=== PATIENT | male | born 1975 | race Hispanic/Latino ===

== ENCOUNTER 2017-12-27 14:50 | Outpatient (CLI) | payer OTHER ==
--- NOTE | 2017-12-27 15:49 | RAD ---
THREE VIEWS OF THE LUMBAR SPINE 12/27/17 COMPARISON: 07/15/17 HISTORY: Lumbar radiculopathy. FINDINGS: The patient appears status post bilateral laminectomy at L3, L4 and L5. Probable partial laminectomy changes noted at L2 as well. There is multilevel facet hypertrophy at L3-4, L4-5, and L5-S1. There is disc space narrowing at L2-3, L3-4, L4-5 and L5-S1. There is anterolisthesis of L4 on L5 measuring i n the 8 mm range on neutral imaging. This anterolisthesis at L4-5 has increased from the 07/15/17 exam at which time it measured in the 2-3 mm range. With flexion, anterolisthesis of L4 on L5 measures 8- 9 mm and with extension, anterolisthesis of L4 on L5 measures in the 7 mm range. IMPRESSION: Multilevel degenerative change seen within the lumbar spine, including anterolisthesis of L4 on L5 me asuring up to 8-9 mm, increased since the prior exam. POS: [facility]
== END 2017-12-27 14:51 | disposition home or self-care (01) ==
LOC: RAD 14:50
PROVIDERS: ATTEND Neurological Surgery
DX: M47.26 Other spondylosis with radiculopathy, lumbar region (principal); M43.16 Spondylolisthesis, lumbar region
CPT/HCPCS: 72100

== ENCOUNTER 2018-07-12 15:25 | Outpatient (CLI) | payer OTHER ==
[~2018-07-12 15:25] MED LIST: Gadobenate Dimeglumine 529 MG/1 ML (20ML VIAL) ONE
== END 2018-07-12 15:26 | disposition home or self-care (01) ==
LOC: BICCT 15:25
PROVIDERS: ATTEND Neurological Surgery
DX: M47.26 Other spondylosis with radiculopathy, lumbar region (principal); M51.16 Intervertebral disc disorders with radiculopathy, lumbar region; M99.83 Other biomechanical lesions of lumbar region; M43.16 Spondylolisthesis, lumbar region; M41.86 Other forms of scoliosis, lumbar region; Z98.890 Other specified postprocedural states
CPT/HCPCS: 72131; 72158; A9579

== ENCOUNTER 2022-06-08 15:26 | Inpatient (IN) | payer OTHER ==
[2022-06-08 16:02] LABS: Hemoglobin 11.6 g/dL (14.0-18.0); Mean Corpuscular Hemoglobin 32.2 pg (27.0-31.0); Mean Corpuscular Volume 94.7 fL (78.0-98.0); Mean Platelet Volume 7.9 fL (7.4-10.4); Platelet Count 181 thou/uL (130-400); RBC Distribution Width 11.4 % (11.5-14.5); Red Blood Cell (RBC) Count 3.61 mill/uL (4.70-6.10); White Blood Cell (WBC) Count 8.4 thou/uL (4.8-10.8)
[2022-06-08] MEDS ORDERED: Labetalol HCl 100 MG/20 ML VIAL ONE (16:08)
[2022-06-08 16:09] LABS: PTT 31.5 sec (22.9-36.1)
[2022-06-08 16:10] LABS: INR-International Normal Ratio 1.2
[2022-06-08 16:17] LABS: Band 7 % (5-11); Lymphocytes 30 % (21-51); MDiff Complete? YES; Monocytes 10 % (0-10); Neutrophil 51 % (42-75); Platelet Morphology Comment Appears Adequate; Polychromasia SLIGHT = 2-3 cells (100X) (0-2/hpf)
[2022-06-08 16:21] LABS: ALT (SGPT) 63 U/L (8-55); AST (SGOT) 108 U/L (5-34); Albumin 3.7 g/dL (3.5-5.0); Alkaline Phosphatase 63 U/L (40-110); Anion Gap 16 mmol/L (10-20); BUN (Urea Nitrogen) 6 mg/dL (8.9-20.6); Bilirubin, Total 0.4 mg/dL (0.2-1.2); CK (CPK) 189 U/L (30-200); Calc. Creatinine Clearance 0 mL/min (70-130); Calcium 8.8 mg/dL (7.8-10.44); Carbon Dioxide 22 mmol/L (22-29); Chloride 96 mmol/L (98-107); Estimated GFR 118; Globulin 3.5 g/dL (2.4-3.5); Glucose 116 mg/dL (70-105); Protein, Total 7.2 g/dL (6.0-8.3); Sodium 130 mmol/L (136-145)
[2022-06-08] MEDS ORDERED: Electrolyte Replacement Protocol 1 EACH IVPB ONE (16:37)
[2022-06-08] MEDS ORDERED: Electrolyte Replacement Protocol 1 EACH FS SCH (17:15)
[2022-06-08] MEDS ORDERED: Ondansetron ODT 4 MG TAB PO PRN (17:15)
[2022-06-08] MEDS ORDERED: Lorazepam (BATCHED) 2 MG/ML SYR SLOW IVP PRN (17:17)
[2022-06-08 17:58] LABS: Magnesium 1.6 mg/dL (1.6-2.6)
[2022-06-08 18:00] LABS: SARS-CoV-2 NAA Rapid Test Not Detected (NotDetected)
[2022-06-08] MEDS ORDERED: Magnesium 2 GM/50 ML BAG (IN WATER) ONE (18:38)
[2022-06-08] MEDS: Multivitamins, Adult 10 ML, Folic Acid 1 MG, Thiamine HCl 100 MG in Dextrose 5 %-0.45 %... IV SCH (20:32)
[2022-06-08] MEDS ORDERED: Rocuronium Bromide 10 MG/ML (10ML VIAL) ONE (20:42)
[2022-06-08] MEDS ORDERED: PROPOFOL 200 MG/20 ML VIAL ONE (20:42)
[2022-06-08] MEDS ORDERED: Propofol 1,000 MG/100 ML VIAL IV ONE (20:47)
[2022-06-08] MEDS ORDERED: Lorazepam 2 MG/ML VIAL ONE (20:55)
[2022-06-08] MEDS ORDERED: DISCONTINUE PREVIOUS NARCOTIC PAIN MEDICATIONS AND BENZODIAZEPINES FS SCH (21:00)
[2022-06-08] MEDS ORDERED: Fentanyl BOLUS 250 ML IVPB PRN (21:00)
[2022-06-08] MEDS ORDERED: Ventilator Sedation Protocol 1 EACH FS SCH (21:00)
[2022-06-08] MEDS ORDERED: Propofol BOLUS 1,000 MG/100 ML VIAL IV PRN (21:00)
[2022-06-08] MEDS: hydrALAZINE 20 MG/ML VIAL SLOW IVP PRN (21:10)
[2022-06-08] MEDS: Labetalol HCl 100 MG/20 ML VIAL SLOW IVP PRN (21:16)
[2022-06-08 21:25] LABS: Actual Bicarbonate (HCO3a) 15.7 mEq/L (22-28); Base Excess (BEa) -6.4 mEq/L (-2.0 to +3.0); Calcium, Ionized (arterial) 1.15 mmol/L (1.12-1.30); O2 Tension (PaO2), arterial 147.2 mmHg (80.0-100.0); Potassium - ABG Lab 3.74 mmol/L (3.70-5.30); pH, Arterial 7.44 (7.35-7.45)
[2022-06-08 21:26] LABS: CO2 Tension 23.8 mmHg (35.0-45.0)
[2022-06-08 21:27] LABS: Puncture Site LRA
[2022-06-08] MEDS ORDERED: Fentanyl CADD 100 ML ONE (21:27)
[2022-06-08] MEDS: Fentanyl CADD 100 ML IV SCH (21:36)
[2022-06-08] MEDS: niCARdipine 25 MG in Sodium Chloride 0.9% 250 ML 250 ML IVPB SCH (21:37)
[2022-06-08] MEDS: Famotidine/PF 20 mg/2ml Vial SLOW IVP SCH (23:56)
[2022-06-09] MEDS: Propofol 1,000 MG/100 ML VIAL IV PRN (01:57)
[2022-06-09] MEDS ORDERED: Lorazepam 2 MG/ML VIAL ONE (02:58)
[2022-06-09 06:37] LABS: #Basophils 0.1 thou/uL (0.0-0.2); #Lymphocytes 1.2 thou/uL (1.20-3.40); #Neutrophils 14.9 thou/uL (1.40-6.50); %Basophils 0.3 % (0.0-1.0); %Eosinophils 0.1 % (0.0-10.0); %Lymphocytes 6.6 % (21.0-51.0); Hemoglobin 11.9 g/dL (14.0-18.0); Mean Corpuscular Hemoglobin 32.4 pg (27.0-31.0); Mean Corpuscular Volume 95.3 fL (78.0-98.0); Mean Platelet Volume 7.8 fL (7.4-10.4); Platelet Count 172 thou/uL (130-400); RBC Distribution Width 11.5 % (11.5-14.5); Red Blood Cell (RBC) Count 3.68 mill/uL (4.70-6.10); White Blood Cell (WBC) Count 18.2 thou/uL (4.8-10.8)
[2022-06-09 06:53] LABS: Amphetamine Not Detected (NotDetected); Barbiturates Screen Not Detected (NotDetected); Benzodiazepine Screen Detected (NotDetected); Cocaine Metabolite Screen Not Detected (NotDetected); Methadone Not Detected (NotDetected); Methamphetamine Not Detected (NotDetected); Opiate Screen Not Detected (NotDetected); Oxycodone Screen Not Detected (NotDetected); Phencyclidine (PCP) Not Detected (NotDetected); THC/Cannabinoid Screen Not Detected (NotDetected); Tricyclic Screen Not Detected (NotDetected)
[2022-06-09 06:54] LABS: Anion Gap 16 mmol/L (10-20); BUN (Urea Nitrogen) 5 mg/dL (8.9-20.6); Calc. Creatinine Clearance 140 mL/min (70-130); Calcium 9.1 mg/dL (7.8-10.44); Carbon Dioxide 22 mmol/L (22-29); Cardiac Risk 3.4 (Less than 4.5); Chloride 96 mmol/L (98-107); Cholesterol 224 mg/dl (< 200 Desired); Estimated GFR 116; Glucose 148 mg/dL (70-105); HDL Cholesterol 65 mg/dL (>60 Neg Risk); LDL Cholesterol, Calculated 146 mg/dL; Potassium 3.9 mmol/L (3.5-5.1); Sodium 130 mmol/L (136-145); Triglycerides 63 mg/dL (Less than 150)
[2022-06-09] MEDS: Famotidine/PF 20 mg/2ml Vial SLOW IVP SCH (08:00)
[2022-06-09] MEDS: Folic Acid 1 MG TAB PO SCH (08:00)
[2022-06-09] MEDS: niCARdipine 25 MG in Sodium Chloride 0.9% 250 ML 250 ML IVPB SCH (08:01)
[2022-06-09] MEDS ORDERED: Iopamidol-370 76% 500 ML 1 ML ONE (09:28)
[2022-06-09] MEDS: Pantoprazole 40 MG VIAL IVP SCH ×2 (10:08→21:28)
[2022-06-09 10:57] LABS: Syphilis Antibody Nonreactive (Nonreactive)
[2022-06-09 11:01] LABS: Syphilis Antibody Index 0.07 S/CO (<1.00 Non-Reactive)
[2022-06-09 12:55] LABS: Actual Bicarbonate (HCO3a) 24.5 mEq/L (22-28); Analyzer IN Cardio ER; Base Excess (BEa) 0.9 mEq/L (-2.0 to +3.0); CO2 Tension 35.5 mmHg (35.0-45.0); Calcium, Ionized (arterial) 1.18 mmol/L (1.12-1.30); Carboxyhemoglobin (COHb) 0.9 gm% (0.0-3.0); Hemoglobin (Hb) 12.6 g/dL (14.0-18.0); O2 Tension (PaO2), arterial 60.6 mmHg (80.0-100.0); Potassium - ABG Lab 3.88 mmol/L (3.70-5.30); pH, Arterial 7.46 (7.35-7.45)
[2022-06-09 13:00] LABS: ALV-art Gradient 144.575 mmHg (0-20); Puncture Site LRA
[2022-06-09] MEDS: Sodium Chloride 0.9% 1,000 ML IV SCH ×2 (14:25→22:45)
[2022-06-09] MEDS ORDERED: Fentanyl CADD 0 ML ONE (17:03)
[2022-06-09] MEDS: Fentanyl CADD 100 ML IV SCH (17:11)
[2022-06-09] MEDS: Multivitamins, Adult 10 ML, Folic Acid 1 MG, Thiamine HCl 100 MG in Dextrose 5 %-0.45 %... IV SCH (18:00)
[2022-06-09] MEDS: levETIRAcetam 500 MG/5 ML VIAL SLOW IVP SCH (21:28)
[2022-06-10] MEDS: levETIRAcetam 500 MG/5 ML VIAL SLOW IVP SCH ×2 (09:41→20:49)
[2022-06-10] MEDS: Propofol 1,000 MG/100 ML VIAL IV PRN ×2 (09:41→17:24)
[2022-06-10] MEDS: Folic Acid 1 MG TAB PO SCH (09:42)
[2022-06-10] MEDS: Pantoprazole 40 MG VIAL IVP SCH ×2 (09:43→20:49)
[2022-06-10 09:57] LABS: #Basophils 0.1 thou/uL (0.0-0.2); #Lymphocytes 1.5 thou/uL (1.20-3.40); #Monocytes 2.1 thou/uL (0.11-0.59); #Neutrophils 12.2 thou/uL (1.40-6.50); %Basophils 0.3 % (0.0-1.0); %Eosinophils 0.2 % (0.0-10.0); %Lymphocytes 9.5 % (21.0-51.0); %Monocytes 13.4 % (0.0-10.0); %Neutrophils 76.5 % (42.0-75.0); Hemoglobin 12.2 g/dL (14.0-18.0); Mean Corpuscular HGB CONC 32.3 g/dL (32.0-36.0); Mean Platelet Volume 8.5 fL (7.4-10.4); Platelet Count 135 thou/uL (130-400); RBC Distribution Width 11.5 % (11.5-14.5); Red Blood Cell (RBC) Count 3.83 mill/uL (4.70-6.10)
[2022-06-10 10:13] LABS: ALT (SGPT) 39 U/L (8-55); AST (SGOT) 48 U/L (5-34); Albumin 3.5 g/dL (3.5-5.0); Alkaline Phosphatase 58 U/L (40-110); Anion Gap 14 mmol/L (10-20); BUN (Urea Nitrogen) 5 mg/dL (8.9-20.6); Bilirubin, Total 1.1 mg/dL (0.2-1.2); Calc. Creatinine Clearance 155 mL/min (70-130); Carbon Dioxide 23 mmol/L (22-29); Chloride 99 mmol/L (98-107); Estimated GFR 120; Globulin 3.8 g/dL (2.4-3.5); Glucose 114 mg/dL (70-105); Potassium 3.6 mmol/L (3.5-5.1); Protein, Total 7.3 g/dL (6.0-8.3); Sodium 132 mmol/L (136-145)
[2022-06-10] MEDS: Sodium Chloride 0.9% 1,000 ML IV SCH ×2 (10:34→20:51)
[2022-06-10] MEDS ORDERED: Lorazepam 0.5 MG TAB PO SCH (17:15)
[2022-06-10] MEDS ORDERED: Lorazepam 1 MG TAB PO PRN (17:15)
[2022-06-10] MEDS: hydrALAZINE 20 MG/ML VIAL SLOW IVP PRN ×2 (17:49→19:46)
[2022-06-10] MEDS: Multivitamins, Adult 10 ML, Folic Acid 1 MG, Thiamine HCl 100 MG in Dextrose 5 %-0.45 %... IV SCH (19:09)
[2022-06-10] MEDS: niCARdipine 25 MG in Sodium Chloride 0.9% 250 ML 250 ML IVPB SCH (21:56)
[2022-06-11] MEDS: niCARdipine 50 MG in Sodium Chloride 0.9% 250 ML 230 ML IVPB SCH ×4 (01:10→18:40)
[2022-06-11 04:11] LABS: ALT (SGPT) 33 U/L (8-55); AST (SGOT) 33 U/L (5-34); Albumin 3.3 g/dL (3.5-5.0); Alkaline Phosphatase 63 U/L (40-110); Anion Gap 14 mmol/L (10-20); BUN (Urea Nitrogen) 6 mg/dL (8.9-20.6); Bilirubin, Total 1.3 mg/dL (0.2-1.2); Calc. Creatinine Clearance 155 mL/min (70-130); Calcium 8.8 mg/dL (7.8-10.44); Carbon Dioxide 22 mmol/L (22-29); Chloride 96 mmol/L (98-107); Estimated GFR 120; Globulin 3.9 g/dL (2.4-3.5); Glucose 161 mg/dL (70-105); Protein, Total 7.2 g/dL (6.0-8.3); Sodium 129 mmol/L (136-145)
[2022-06-11 04:34] LABS: Band 35 % (5-11); Hemoglobin 11.8 g/dL (14.0-18.0); Hypochromia SLIGHT = 6-15 cells (100X) (0-5/hpf); Lymphocytes 5 % (21-51); MDiff Complete? YES; Mean Corpuscular Hemoglobin 32.7 pg (27.0-31.0); Mean Corpuscular Volume 96.3 fL (78.0-98.0); Mean Platelet Volume 8.9 fL (7.4-10.4); Monocytes 7 % (0-10); Neutrophil 53 % (42-75); Platelet Count 132 thou/uL (130-400); Platelet Morphology Comment Appears Adequate; RBC Distribution Width 11.4 % (11.5-14.5); Red Blood Cell (RBC) Count 3.62 mill/uL (4.70-6.10); White Blood Cell (WBC) Count 14.1 thou/uL (4.8-10.8)
[2022-06-11 04:43] LABS: Potassium 2.8 mmol/L (3.5-5.1)
[2022-06-11] MEDS ORDERED: Fentanyl CADD 100 ML ONE (04:56)
[2022-06-11] MEDS: Fentanyl CADD 100 ML IV SCH (04:59)
[2022-06-11] MEDS: Potassium Chloride 20 MEQ in Premix Bag 1 BAG IVPB SCH ×4 (05:09→12:16)
[2022-06-11] MEDS: Folic Acid 1 MG TAB PO SCH (08:02)
[2022-06-11] MEDS: levETIRAcetam 500 MG/5 ML VIAL SLOW IVP SCH ×2 (08:02→21:23)
[2022-06-11] MEDS: Pantoprazole 40 MG VIAL IVP SCH ×2 (08:03→21:22)
[2022-06-11] MEDS ORDERED: Potassium Chloride 20 MEQ TAB PO SCH (11:00)
[2022-06-11] MEDS ORDERED: Piperacillin/Tazobactam 3.375 GM in Sodium Chloride 0.9% 100 ML IVPB SCH (11:15)
[2022-06-11] MEDS ORDERED: VANCOMYCIN 1.75 GM/500 ML BAG 1.75 GM in Premix Bag 1 BAG IVPB SCH (12:00)
[2022-06-11] MEDS: Sodium Chloride 0.9% 1,000 ML IV SCH ×2 (12:08→21:37)
[2022-06-11] MEDS: Propofol 1,000 MG/100 ML VIAL IV PRN ×3 (12:25→22:51)
[2022-06-11] MEDS: Piperacillin/Tazobactam 3.375 GM in Sodium Chloride 0.9% 100 ML IVPB SCH ×2 (14:48→22:51)
[2022-06-11] MEDS ORDERED: Lorazepam 0.5 MG TAB PO PRN (17:15)
[2022-06-11 18:31] LABS: Hemoglobin 11.1 g/dL (14.0-18.0)
[2022-06-11] MEDS: Multivitamins, Adult 10 ML, Folic Acid 1 MG, Thiamine HCl 100 MG in Dextrose 5 %-0.45 %... IV SCH (19:02)
[2022-06-11] MEDS: Vancomycin 1 GM in Premix Bag 1 BAG IVPB SCH (21:22)
[2022-06-12] MEDS: Vancomycin 1 GM in Premix Bag 1 BAG IVPB SCH ×3 (03:21→19:53)
[2022-06-12] MEDS: niCARdipine 50 MG in Sodium Chloride 0.9% 250 ML 230 ML IVPB SCH ×2 (03:21→15:09)
[2022-06-12 04:25] LABS: ALT (SGPT) 26 U/L (8-55); AST (SGOT) 25 U/L (5-34); Alkaline Phosphatase 59 U/L (40-110); Anion Gap 14 mmol/L (10-20); BUN (Urea Nitrogen) 9 mg/dL (8.9-20.6); Bilirubin, Total 1.6 mg/dL (0.2-1.2); Calc. Creatinine Clearance 161 mL/min (70-130); Calcium 8.5 mg/dL (7.8-10.44); Carbon Dioxide 21 mmol/L (22-29); Chloride 100 mmol/L (98-107); Estimated GFR 120; Globulin 3.9 g/dL (2.4-3.5); Glucose 142 mg/dL (70-105); Magnesium 1.6 mg/dL (1.6-2.6); Potassium 3.2 mmol/L (3.5-5.1); Protein, Total 6.9 g/dL (6.0-8.3); Sodium 132 mmol/L (136-145)
[2022-06-12] MEDS: Fentanyl CADD 100 ML IV SCH ×2 (04:31→23:30)
[2022-06-12 05:20] LABS: Band 37 % (5-11); Eosinophils 3 % (0-10); Hemoglobin 11.5 g/dL (14.0-18.0); Lymphocytes 5 % (21-51); MDiff Complete? YES; Mean Corpuscular HGB CONC 33.3 g/dL (32.0-36.0); Mean Corpuscular Hemoglobin 32.3 pg (27.0-31.0); Mean Platelet Volume 9.2 fL (7.4-10.4); Monocytes 20 % (0-10); Neutrophil 34 % (42-75); Platelet Count 150 thou/uL (130-400); RBC Distribution Width 11.3 % (11.5-14.5); Red Blood Cell (RBC) Count 3.56 mill/uL (4.70-6.10); White Blood Cell (WBC) Count 14.6 thou/uL (4.8-10.8)
[2022-06-12] MEDS: Piperacillin/Tazobactam 3.375 GM in Sodium Chloride 0.9% 100 ML IVPB SCH ×3 (06:25→22:38)
[2022-06-12 07:59] LABS: Actual Bicarbonate (HCO3a) 21.6 mEq/L (22-28); Base Excess (BEa) -2.3 mEq/L (-2.0 to +3.0); CO2 Tension 34.5 mmHg (35.0-45.0); Calcium, Ionized (arterial) 1.17 mmol/L (1.12-1.30); Carboxyhemoglobin (COHb) 1.2 gm% (0.0-3.0); Hemoglobin (Hb) 13.7 g/dL (14.0-18.0); O2 Tension (PaO2), arterial 67.3 mmHg (80.0-100.0); Potassium - ABG Lab 3.17 mmol/L (3.70-5.30); pH, Arterial 7.41 (7.35-7.45)
[2022-06-12 08:18] LABS: ALV-art Gradient 210.425 mmHg (0-20); Puncture Site RRA
[2022-06-12] MEDS: Sodium Chloride 0.9% 1,000 ML IV SCH ×2 (08:54→17:02)
[2022-06-12] MEDS: Propofol 1,000 MG/100 ML VIAL IV PRN ×3 (08:55→20:20)
[2022-06-12] MEDS: Pantoprazole 40 MG VIAL IVP SCH ×2 (08:55→19:56)
[2022-06-12] MEDS: levETIRAcetam 500 MG/5 ML VIAL SLOW IVP SCH ×2 (08:55→19:57)
[2022-06-12] MEDS: Folic Acid 1 MG TAB PO SCH (08:55)
[2022-06-12] MEDS ORDERED: AFRIN NASAL MIST 15 ML BOT NS PRN (10:58)
[2022-06-12] MEDS: Multivitamins, Adult 10 ML, Folic Acid 1 MG, Thiamine HCl 100 MG in Dextrose 5 %-0.45 %... IV SCH (18:35)
[2022-06-13] MEDS: niCARdipine 50 MG in Sodium Chloride 0.9% 250 ML 230 ML IVPB SCH (01:23)
[2022-06-13] MEDS: Vancomycin 1 GM in Premix Bag 1 BAG IVPB SCH ×3 (03:30→20:11)
[2022-06-13] MEDS: Sodium Chloride 0.9% 1,000 ML IV SCH ×3 (03:55→21:51)
[2022-06-13] MEDS: Piperacillin/Tazobactam 3.375 GM in Sodium Chloride 0.9% 100 ML IVPB SCH ×3 (06:43→22:07)
[2022-06-13] MEDS: Propofol 1,000 MG/100 ML VIAL IV PRN ×3 (09:11→22:06)
[2022-06-13] MEDS: Folic Acid 1 MG TAB PO SCH (09:12)
[2022-06-13] MEDS: Pantoprazole 40 MG VIAL IVP SCH ×2 (09:12→20:11)
[2022-06-13] MEDS: levETIRAcetam 500 MG/5 ML VIAL SLOW IVP SCH ×2 (09:12→20:11)
[2022-06-13 11:55] LABS: INR-International Normal Ratio 1.1; Prothrombin Time 14.5 sec (12.0-14.7)
[2022-06-13 11:56] LABS: PTT 36.8 sec (22.9-36.1)
[2022-06-13] MEDS ORDERED: Fentanyl CADD 100 ML ONE (12:07)
[2022-06-13] MEDS: Fentanyl CADD 100 ML IV SCH (12:30)
[2022-06-13] MEDS: hydrALAZINE 20 MG/ML VIAL SLOW IVP PRN (12:36)
[2022-06-13] MEDS: Multivitamins, Adult 10 ML, Folic Acid 1 MG, Thiamine HCl 100 MG in Dextrose 5 %-0.45 %... IV SCH (17:42)
[2022-06-13] MEDS ORDERED: Pancrelipase DR 12,000 1 CAP FS PRN (19:15)
[2022-06-13] MEDS ORDERED: Sodium Bicarbonate Tab 325 MG TAB PER TUBE PRN (19:15)
[2022-06-14] MEDS ORDERED: Fentanyl CADD 100 ML ONE (00:04)
[2022-06-14] MEDS: Fentanyl CADD 100 ML IV SCH (00:50)
[2022-06-14 04:49] LABS: ALT (SGPT) 32 U/L (8-55); AST (SGOT) 32 U/L (5-34); Albumin 2.7 g/dL (3.5-5.0); Alkaline Phosphatase 83 U/L (40-110); Anion Gap 13 mmol/L (10-20); BUN (Urea Nitrogen) 5 mg/dL (8.9-20.6); Bilirubin, Total 0.8 mg/dL (0.2-1.2); Calc. Creatinine Clearance 207 mL/min (70-130); Calcium 9.1 mg/dL (7.8-10.44); Carbon Dioxide 29 mmol/L (22-29); Chloride 93 mmol/L (98-107); Estimated GFR 127; Globulin 3.9 g/dL (2.4-3.5); Glucose 137 mg/dL (70-105); Magnesium 1.9 mg/dL (1.6-2.6); Protein, Total 6.6 g/dL (6.0-8.3); Sodium 133 mmol/L (136-145)
[2022-06-14 04:53] LABS: Potassium 2.4 mmol/L (3.5-5.1)
[2022-06-14] MEDS: Vancomycin 1 GM in Premix Bag 1 BAG IVPB SCH (04:56)
[2022-06-14 05:25] LABS: Band 27 % (5-11); Hemoglobin 12.1 g/dL (14.0-18.0); Lymphocytes 11 % (21-51); MDiff Complete? YES; Mean Corpuscular HGB CONC 33.5 g/dL (32.0-36.0); Mean Corpuscular Hemoglobin 32.6 pg (27.0-31.0); Mean Corpuscular Volume 97.5 fL (78.0-98.0); Mean Platelet Volume 9.2 fL (7.4-10.4); Monocytes 19 % (0-10); Neutrophil 43 % (42-75); Platelet Count 196 thou/uL (130-400); RBC Distribution Width 11.3 % (11.5-14.5); White Blood Cell (WBC) Count 14.6 thou/uL (4.8-10.8)
[2022-06-14] MEDS: Potassium Chloride 20 MEQ in Premix Bag 1 BAG IVPB SCH ×4 (06:03→11:47)
[2022-06-14] MEDS: Piperacillin/Tazobactam 3.375 GM in Sodium Chloride 0.9% 100 ML IVPB SCH ×3 (06:04→22:01)
[2022-06-14 07:00] LABS: Actual Bicarbonate (HCO3a) 32.7 mEq/L (22-28); Base Excess (BEa) 7.8 mEq/L (-2.0 to +3.0); CO2 Tension 46.1 mmHg (35.0-45.0); Calcium, Ionized (arterial) 1.18 mmol/L (1.12-1.30); Hemoglobin (Hb) 15.5 g/dL (14.0-18.0); O2 Tension (PaO2), arterial 83.4 mmHg (80.0-100.0); Potassium - ABG Lab 2.24 mmol/L (3.70-5.30); pH, Arterial 7.47 (7.35-7.45)
[2022-06-14 07:04] LABS: ALV-art Gradient 144.175 mmHg (0-20); Puncture Site RRA
[2022-06-14] MEDS: Pantoprazole 40 MG VIAL IVP SCH ×2 (07:25→20:12)
[2022-06-14] MEDS: Folic Acid 1 MG TAB PO SCH (07:25)
[2022-06-14] MEDS: levETIRAcetam 500 MG/5 ML VIAL SLOW IVP SCH ×2 (07:26→20:12)
[2022-06-14] MEDS: Sodium Chloride 0.9% 1,000 ML IV SCH ×2 (09:07→19:44)
[2022-06-14] MEDS: Propofol 1,000 MG/100 ML VIAL IV PRN ×2 (12:08→18:37)
[2022-06-14] MEDS: hydrALAZINE 20 MG/ML VIAL SLOW IVP PRN (15:35)
[2022-06-14] MEDS: Labetalol HCl 100 MG/20 ML VIAL SLOW IVP PRN (16:46)
[2022-06-14] MEDS: Multivitamins, Adult 10 ML, Folic Acid 1 MG, Thiamine HCl 100 MG in Dextrose 5 %-0.45 %... IV SCH (18:37)
[2022-06-15] MEDS: Labetalol HCl 100 MG/20 ML VIAL SLOW IVP PRN ×2 (01:29→19:27)
[2022-06-15] MEDS: Propofol 1,000 MG/100 ML VIAL IV PRN ×4 (03:39→22:19)
[2022-06-15 04:19] LABS: Anion Gap 15 mmol/L (10-20); BUN (Urea Nitrogen) 7 mg/dL (8.9-20.6); Calc. Creatinine Clearance 182 mL/min (70-130); Carbon Dioxide 28 mmol/L (22-29); Chloride 91 mmol/L (98-107); Estimated GFR 123; Glucose 126 mg/dL (70-105); Sodium 131 mmol/L (136-145)
[2022-06-15 04:37] LABS: Band 16 % (5-11); Eosinophils 1 % (0-10); Hemoglobin 11.6 g/dL (14.0-18.0); Lymphocytes 13 % (21-51); MDiff Complete? YES; Macrocytosis SLIGHT = 6-15 cells (100X) (0-5/hpf); Mean Corpuscular HGB CONC 32.8 g/dL (32.0-36.0); Mean Corpuscular Hemoglobin 32.6 pg (27.0-31.0); Mean Corpuscular Volume 99.4 fL (78.0-98.0); Monocytes 14 % (0-10); Myelocyte 3 % (0-0); Neutrophil 53 % (42-75); Ovalocytes SLIGHT = 2-5 cells (100X) (0-1/hpf); Platelet Count 204 thou/uL (130-400); Platelet Morphology Comment Appears Adequate; RBC Distribution Width 11.4 % (11.5-14.5); Red Blood Cell (RBC) Count 3.55 mill/uL (4.70-6.10); Toxic Granulation SLIGHT; White Blood Cell (WBC) Count 14.4 thou/uL (4.8-10.8)
[2022-06-15 04:54] LABS: Potassium 2.5 mmol/L (3.5-5.1)
[2022-06-15] MEDS: Sodium Chloride 0.9% 1,000 ML IV SCH ×2 (05:25→07:38)
[2022-06-15] MEDS: Potassium Chloride 20 MEQ in Premix Bag 1 BAG IVPB SCH ×4 (05:30→10:28)
[2022-06-15] MEDS: hydrALAZINE 20 MG/ML VIAL SLOW IVP PRN (05:53)
[2022-06-15] MEDS: Piperacillin/Tazobactam 3.375 GM in Sodium Chloride 0.9% 100 ML IVPB SCH ×3 (06:00→22:18)
[2022-06-15] MEDS: Folic Acid 1 MG TAB PO SCH (07:37)
[2022-06-15] MEDS: levETIRAcetam 500 MG/5 ML VIAL SLOW IVP SCH ×2 (07:37→20:31)
[2022-06-15] MEDS: Pantoprazole 40 MG VIAL IVP SCH (07:38)
[2022-06-15] MEDS: Midazolam HCl 2 mg/2 ml Vial SLOW IVP PRN (14:53)
[2022-06-15] MEDS: niCARdipine 50 MG in Sodium Chloride 0.9% 250 ML 230 ML IVPB SCH ×2 (20:40→22:34)
[2022-06-16] MEDS: Sodium Chloride 0.9% 1,000 ML IV SCH ×2 (00:27→11:33)
[2022-06-16] MEDS: niCARdipine 50 MG in Sodium Chloride 0.9% 250 ML 230 ML IVPB SCH ×2 (00:28→06:00)
[2022-06-16] MEDS: Morphine 4 MG/ML VIAL SLOW IVP PRN (01:54)
[2022-06-16] MEDS: Propofol 1,000 MG/100 ML VIAL IV PRN ×3 (02:43→13:32)
[2022-06-16] MEDS ORDERED: Fentanyl CADD 100 ML ONE (03:29)
[2022-06-16] MEDS: Fentanyl CADD 100 ML IV SCH (03:32)
[2022-06-16] MEDS: Piperacillin/Tazobactam 3.375 GM in Sodium Chloride 0.9% 100 ML IVPB SCH ×3 (06:08→22:37)
[2022-06-16 06:50] LABS: Anion Gap 16 mmol/L (10-20); BUN (Urea Nitrogen) 8 mg/dL (8.9-20.6); Calc. Creatinine Clearance 164 mL/min (70-130); Calcium 9.6 mg/dL (7.8-10.44); Carbon Dioxide 26 mmol/L (22-29); Chloride 97 mmol/L (98-107); Estimated GFR 120; Glucose 121 mg/dL (70-105); Sodium 136 mmol/L (136-145)
[2022-06-16 06:51] LABS: Potassium 2.9 mmol/L (3.5-5.1)
[2022-06-16] MEDS ORDERED: Potassium Bicarbonate/Cit Ac 20 MEQ TAB PER TUBE PRN (06:53)
[2022-06-16] MEDS ORDERED: Potassium Chloride 20 MEQ TAB PER TUBE SCH (07:00)
[2022-06-16] MEDS: Labetalol HCl 100 MG/20 ML VIAL SLOW IVP PRN ×2 (07:15→19:30)
[2022-06-16] MEDS: Pantoprazole 40 MG VIAL IVP SCH (07:16)
[2022-06-16] MEDS: levETIRAcetam 500 MG/5 ML VIAL SLOW IVP SCH ×2 (07:16→21:09)
[2022-06-16] MEDS: Folic Acid 1 MG TAB PO SCH (07:16)
[2022-06-16 07:23] LABS: Hemoglobin 12.1 g/dL (14.0-18.0); Mean Corpuscular HGB CONC 32.9 g/dL (32.0-36.0); Mean Corpuscular Hemoglobin 31.6 pg (27.0-31.0); Mean Corpuscular Volume 96.1 fL (78.0-98.0); Platelet Count 255 thou/uL (130-400); RBC Distribution Width 11.6 % (11.5-14.5); Red Blood Cell (RBC) Count 3.83 mill/uL (4.70-6.10); White Blood Cell (WBC) Count 16.5 thou/uL (4.8-10.8)
[2022-06-16] MEDS ORDERED: Potassium Bicarbonate/Cit Ac 20 MEQ TAB PER TUBE SCH (07:30)
[2022-06-16 08:37] LABS: Band 23 % (5-11); Eosinophils 1 % (0-10); Lymphocytes 18 % (21-51); MDiff Complete? YES; Metamyelocyte 3 % (0-0); Monocytes 9 % (0-10); Myelocyte 3 % (0-0); Neutrophil 42 % (42-75); Platelet Morphology Comment Appears Adequate; RBC Morphology Normal
[2022-06-16 12:37] LABS: Anion Gap 16 mmol/L (10-20); BUN (Urea Nitrogen) 8 mg/dL (8.9-20.6); Calc. Creatinine Clearance 172 mL/min (70-130); Calcium 9.1 mg/dL (7.8-10.44); Carbon Dioxide 25 mmol/L (22-29); Chloride 97 mmol/L (98-107); Estimated GFR 122; Glucose 99 mg/dL (70-105); Potassium 3.4 mmol/L (3.5-5.1); Sodium 135 mmol/L (136-145)
[2022-06-16] MEDS: hydrALAZINE 20 MG/ML VIAL SLOW IVP PRN (22:37)
[2022-06-17] MEDS: hydrALAZINE 20 MG/ML VIAL SLOW IVP PRN ×2 (00:10→06:03)
[2022-06-17] MEDS: Morphine 4 MG/ML VIAL SLOW IVP PRN ×2 (00:24→21:51)
[2022-06-17] MEDS: Sodium Chloride 0.9% 1,000 ML IV SCH ×3 (00:58→18:46)
[2022-06-17] MEDS: Propofol 1,000 MG/100 ML VIAL IV PRN ×3 (02:19→18:23)
[2022-06-17 04:03] LABS: Hemoglobin 11.8 g/dL (14.0-18.0); Mean Corpuscular HGB CONC 33.9 g/dL (32.0-36.0); Mean Corpuscular Hemoglobin 32.4 pg (27.0-31.0); Mean Corpuscular Volume 95.7 fL (78.0-98.0); Mean Platelet Volume 8.5 fL (7.4-10.4); Platelet Count 244 thou/uL (130-400); RBC Distribution Width 11.9 % (11.5-14.5); Red Blood Cell (RBC) Count 3.62 mill/uL (4.70-6.10); White Blood Cell (WBC) Count 16.2 thou/uL (4.8-10.8)
[2022-06-17 04:20] LABS: Anion Gap 15 mmol/L (10-20); BUN (Urea Nitrogen) 11 mg/dL (8.9-20.6); Calc. Creatinine Clearance 156 mL/min (70-130); Calcium 9.2 mg/dL (7.8-10.44); Carbon Dioxide 26 mmol/L (22-29); Chloride 96 mmol/L (98-107); Estimated GFR 118; Glucose 117 mg/dL (70-105); Sodium 134 mmol/L (136-145)
[2022-06-17 04:42] LABS: Band 10 % (5-11); Differential Comment Immature Cell(s); Eosinophils 2 % (0-10); Lymphocytes 17 % (21-51); MDiff Complete? YES; Metamyelocyte 1 % (0-0); Monocytes 5 % (0-10); Myelocyte 7 % (0-0); Neutrophil 55 % (42-75); Platelet Morphology Comment Appears Adequate; RBC Morphology Normal; Reflex for Review?? YES
[2022-06-17] MEDS: Piperacillin/Tazobactam 3.375 GM in Sodium Chloride 0.9% 100 ML IVPB SCH ×3 (06:03→22:49)
[2022-06-17] MEDS: Labetalol HCl 100 MG/20 ML VIAL SLOW IVP PRN (06:27)
[2022-06-17] MEDS: levETIRAcetam 500 MG/5 ML VIAL SLOW IVP SCH ×2 (08:31→20:32)
[2022-06-17] MEDS: Pantoprazole 40 MG VIAL IVP SCH (08:31)
[2022-06-17] MEDS: Folic Acid 1 MG TAB PO SCH (08:31)
[2022-06-17] MEDS: niCARdipine 50 MG in Sodium Chloride 0.9% 250 ML 230 ML IVPB SCH ×5 (10:21→22:53)
[2022-06-17] MEDS ORDERED: Sodium Bicarb 50 MEQ/50 ML VIAL ONE (13:22)
[2022-06-17] MEDS: Fentanyl CADD 100 ML IV SCH (13:29)
[2022-06-18] MEDS: Propofol 1,000 MG/100 ML VIAL IV PRN ×5 (00:07→20:31)
[2022-06-18] MEDS: niCARdipine 50 MG in Sodium Chloride 0.9% 250 ML 230 ML IVPB SCH ×10 (01:27→23:27)
[2022-06-18 04:24] LABS: Anion Gap 15 mmol/L (10-20); BUN (Urea Nitrogen) 11 mg/dL (8.9-20.6); Calc. Creatinine Clearance 164 mL/min (70-130); Calcium 9.3 mg/dL (7.8-10.44); Carbon Dioxide 27 mmol/L (22-29); Chloride 98 mmol/L (98-107); Estimated GFR 120; Glucose 135 mg/dL (70-105); Sodium 137 mmol/L (136-145)
[2022-06-18 04:25] LABS: Potassium 2.8 mmol/L (3.5-5.1)
[2022-06-18 04:35] LABS: Hemoglobin 11.7 g/dL (14.0-18.0); Mean Corpuscular HGB CONC 32.8 g/dL (32.0-36.0); Mean Corpuscular Hemoglobin 31.9 pg (27.0-31.0); Mean Corpuscular Volume 97.3 fL (78.0-98.0); Mean Platelet Volume 8.4 fL (7.4-10.4); Platelet Count 256 thou/uL (130-400); RBC Distribution Width 11.7 % (11.5-14.5); Red Blood Cell (RBC) Count 3.67 mill/uL (4.70-6.10); White Blood Cell (WBC) Count 18.6 thou/uL (4.8-10.8)
[2022-06-18 04:36] LABS: Band 23 % (5-11); Hypochromia SLIGHT = 6-15 cells (100X) (0-5/hpf); Lymphocytes 7 % (21-51); MDiff Complete? YES; Monocytes 19 % (0-10); Neutrophil 51 % (42-75); Platelet Morphology Comment Appears Adequate
[2022-06-18] MEDS: Sodium Chloride 0.9% 1,000 ML IV SCH ×3 (05:30→23:27)
[2022-06-18] MEDS: Piperacillin/Tazobactam 3.375 GM in Sodium Chloride 0.9% 100 ML IVPB SCH ×3 (06:00→23:26)
[2022-06-18] MEDS: Labetalol HCl 100 MG/20 ML VIAL SLOW IVP PRN ×2 (07:28→12:55)
[2022-06-18] MEDS: levETIRAcetam 500 MG/5 ML VIAL SLOW IVP SCH ×2 (08:47→20:31)
[2022-06-18] MEDS: Pantoprazole 40 MG VIAL IVP SCH (08:47)
[2022-06-18] MEDS: Folic Acid 1 MG TAB PO SCH (08:47)
[2022-06-18 09:20] LABS: Potassium 3.4 mmol/L (3.5-5.1)
[2022-06-18] MEDS ORDERED: Electrolyte Replacement Protocol 1 EACH FS ONE (11:40)
[2022-06-18 11:56] VITALS: BMI 25.9
[2022-06-18] MEDS ORDERED: Electrolyte Replacement Protocol FS PRN (12:15)
[2022-06-18] MEDS: hydrALAZINE 20 MG/ML VIAL SLOW IVP PRN (14:50)
[2022-06-18] MEDS: Midazolam HCl 2 mg/2 ml Vial SLOW IVP PRN (17:22)
[2022-06-18] MEDS: Morphine 4 MG/ML VIAL SLOW IVP PRN (17:23)
[2022-06-18] MEDS: Fentanyl CADD 100 ML IV SCH (17:31)
[2022-06-19] MEDS: Propofol 1,000 MG/100 ML VIAL IV PRN ×2 (00:55→05:45)
[2022-06-19] MEDS: niCARdipine 50 MG in Sodium Chloride 0.9% 250 ML 230 ML IVPB SCH ×7 (00:55→15:46)
[2022-06-19 04:57] LABS: Anion Gap 13 mmol/L (10-20); BUN (Urea Nitrogen) 15 mg/dL (8.9-20.6); Calc. Creatinine Clearance 159 mL/min (70-130); Calcium 9.2 mg/dL (7.8-10.44); Carbon Dioxide 29 mmol/L (22-29); Chloride 100 mmol/L (98-107); Estimated GFR 119; Glucose 104 mg/dL (70-105); Potassium 3.4 mmol/L (3.5-5.1); Sodium 139 mmol/L (136-145)
[2022-06-19 05:24] LABS: Band 10 % (5-11); Eosinophils 1 % (0-10); Hemoglobin 10.7 g/dL (14.0-18.0); Lymphocytes 9 % (21-51); MDiff Complete? YES; Mean Corpuscular Hemoglobin 32.3 pg (27.0-31.0); Mean Corpuscular Volume 97.7 fL (78.0-98.0); Mean Platelet Volume 8.7 fL (7.4-10.4); Monocytes 7 % (0-10); Myelocyte 1 % (0-0); Neutrophil 72 % (42-75); Platelet Count 240 thou/uL (130-400); Platelet Morphology Comment Appears Adequate; RBC Distribution Width 11.9 % (11.5-14.5); RBC Morphology Normal; Red Blood Cell (RBC) Count 3.32 mill/uL (4.70-6.10); White Blood Cell (WBC) Count 27.6 thou/uL (4.8-10.8)
[2022-06-19] MEDS: Piperacillin/Tazobactam 3.375 GM in Sodium Chloride 0.9% 100 ML IVPB SCH ×2 (06:08→15:21)
[2022-06-19] MEDS: Folic Acid 1 MG TAB PO SCH (07:57)
[2022-06-19] MEDS: levETIRAcetam 500 MG/5 ML VIAL SLOW IVP SCH ×2 (07:57→20:21)
[2022-06-19] MEDS: Sodium Chloride 0.9% 1,000 ML IV SCH ×2 (07:58→20:21)
[2022-06-19] MEDS: Pantoprazole 40 MG VIAL IVP SCH (07:58)
[2022-06-19] MEDS ORDERED: Potassium Bicarbonate/Cit Ac 20 MEQ TAB PER TUBE SCH (08:00)
[2022-06-19] MEDS ORDERED: fentaNYL 75 mcg/hour Patch TD SCH ×2 (12:00→15:00)
[2022-06-19] MEDS: Labetalol HCl 100 MG/20 ML VIAL SLOW IVP PRN (15:23)
[2022-06-19 15:24] VITALS: BP 117/72
[2022-06-19] MEDS ORDERED: Midazolam HCl 2 mg/2 ml Vial SLOW IVP PRN (15:46)
[2022-06-19] MEDS ORDERED: Morphine 4 MG/ML VIAL SLOW IVP PRN (16:00)
[2022-06-19] MEDS ORDERED: Fentanyl BOLUS 250 ML IVPB PRN (16:00)
[2022-06-19] MEDS ORDERED: Propofol 1,000 MG/100 ML VIAL IV PRN (16:00)
[2022-06-19] MEDS ORDERED: Fentanyl CADD 100 ML IV SCH (16:00)
[2022-06-19] MEDS ORDERED: Propofol BOLUS 1,000 MG/100 ML VIAL IV PRN (16:00)
[2022-06-19 20:30] VITALS: TEMP 99.1
== END 2022-06-19 22:25 | disposition expired | DRG 64 ==
LOC: ERS 15:26 → CCU 16:51
PROVIDERS: ADMIT Internal Medicine; ATTEND Internal Medicine
PROC: 5A1955Z Respiratory Ventilation, Greater than 96 Consecutive Hours (ICD-10-PCS; principal; 2022-06-08)
PROC: 0BH17EZ Insertion of Endotracheal Airway into Trachea, Via Natural or Artificial Opening (ICD-10-PCS; 2022-06-08)
PROC: 0D9670Z Drainage of Stomach with Drainage Device, Via Natural or Artificial Opening (ICD-10-PCS; 2022-06-08)
PROC: HZ2ZZZZ Detoxification Services for Substance Abuse Treatment (ICD-10-PCS; 2022-06-08)
DX: I61.0 Nontraumatic intracerebral hemorrhage in hemisphere, subcortical (principal); G93.6 Cerebral edema; G93.41 Metabolic encephalopathy; G93.5 Compression of brain; J96.01 Acute respiratory failure with hypoxia; J18.9 Pneumonia, unspecified organism; G91.1 Obstructive hydrocephalus; E87.1 Hypo-osmolality and hyponatremia; F10.139 Alcohol abuse with withdrawal, unspecified; G40.509 Epileptic seizures related to external causes, not intractable, without status epilepticus; Z51.5 Encounter for palliative care; Z66 Do not resuscitate; Z20.822 Contact with and (suspected) exposure to COVID-19; I10 Essential (primary) hypertension; F32.A Depression, unspecified; F41.9 Anxiety disorder, unspecified; I61.5 Nontraumatic intracerebral hemorrhage, intraventricular; K70.10 Alcoholic hepatitis without ascites; R40.20 Unspecified coma; F10.129 Alcohol abuse with intoxication, unspecified; Y90.6 Blood alcohol level of 120-199 mg/100 ml; E87.6 Hypokalemia; R04.0 Epistaxis; Z79.82 Long term (current) use of aspirin; Z78.1 Physical restraint status; Z79.899 Other long term (current) drug therapy
CPT/HCPCS: 36415; 36416; 36600; 70450; 70496; 71045; 80048; 80053; 80061; 80306; 80307; 82550; 82805; 83735; 83880; 84100; 84484; 85025; 85060; 85610; 85730; 86780; 93005; 94002; 94003; 94640; 95816; 95819; 95957; 96365; C9113; J0360; J1953; J2060; J2250; J2270; J2543; J2704; J3010; J3370; J3411; J3475; J3480; J3490; J7042; J7050; J7799; Q9967; S0028; U0003; U0005